=== PATIENT | female | born 1985 | race Two or more races ===

== ENCOUNTER 2024-10-20 08:51 | Outpatient (RCR) | payer MEDICAID, SELFPAY ==
--- NOTE | 2024-10-20 09:20 | PT.OIERPT ---
PT OP Initial Eval Patient Information Outpatient Physical Therapy Treatment Date: 10/20/24 Visit Reasons: bilateral shoulder pain Medical Diagnosis: Left Shoulder Pain Treatment Dx #1: Left Shoulder Pain Treatment Dx #2: Left Shoulder Mobility Deficits Start of Care: 10/20/24 Date of Onset: 09/09/24 Smoking Status Smoking Status: Never smoker Initial Assessment Subjective: Pt is a 39 y/o female reports of left shoulder pain (04/03) with weakness since 09/09/24. Pt denies of trauma or injury to the shoulder; pain was insidious onset. Pt went to [facility] ER x 2 without any help. All imaging completed and provider came to the results of tendonitis. Pt has limitation with self care, cooking, cleaning, gripping, sleeping, and performing recreational activities. Pt has attempted physical therapy and chiropractic in the past without success. Objective: Left Shoulder PROM: all motions are WFL Left Shoulder AROM Flexion: 60 deg Abduction: 45 deg ER and IR: unable Palpation: supraspinatus tendon Assessment: Pt demonstrate left shoulder pain with high irritability and weakness leading to difficulty with ADLs. At this time Pt will not benefit from physical therapy and advised to follow up with PCP for further consultation. Short Term and Skilled Nursing Goals 1) Eval and D/C 2) Follow up with provider PRN Procedure Charges OP PT Eval Mod Complex 30 minutes: Yes
== END 2024-10-22 23:59 | disposition home or self-care (01) ==
LOC: CPTX 08:51
PROVIDERS: PCP Internal Medicine; Referring Provider Internal Medicine; Visit Provider Internal Medicine
DX: M25.512 Pain in left shoulder (principal); R53.1 Weakness
CPT/HCPCS: 97162